=== PATIENT | male | born 1940 | race Caucasian/White ===

== ENCOUNTER → 2017-03-01 | Outpatient (CLI) | payer MEDICARE, OTHER ==
[~2017-03-01] MED LIST: ADULT LOW DOSE81 M1 PO; ATORVASTATIN CA40 MG PO; CENTRUM SILVER1 EAC3 PO; COZAAR100 MG PO; JANUMET 50/11 TABLET PO; KRILL OIL 3001 EACH PO; LIPITOR40 MG PO; LOPRESSOR50 MG PO; LOSARTAN POTAS100 MG PO; METOPROLOL SUCC50 MG PO; PANTOPRAZOLE SO40 MG PO; STOOL SOFTENER100 M1 PO; TRAMADOL HCL50 MG PO; VITAMIN D31000 UNIT PO; VITAMIN E400 UNIT PO
== END | disposition home or self-care (01) ==
LOC: CDC 13:59
DX: N39.3 Stress incontinence (female) (male) (principal)
CPT/HCPCS: 93000

== ENCOUNTER 2017-03-07 05:29 | Day surgery (SDC) | payer OTHER ==
[~2017-03-07] VITALS: Ht 165.1 cm; Wt 78.5 kg
[2017-03-07 06:11] VITALS: BP 130/75
[2017-03-07 06:12] LABS: POINT-OF-CARE METER ID UU13113694
[2017-03-07 10:54] LABS: POINT-OF-CARE METER ID UU13113675
[2017-03-07 13:00] VITALS: BP 120/56
[2017-03-07 16:00] VITALS: BP 98/55
[2017-03-07 19:43] VITALS: BP 108/54
[2017-03-07 23:43] VITALS: BP 117/57
[2017-03-08 03:59] VITALS: BP 120/58
[2017-03-08 06:44] VITALS: BP 132/61
== END 2017-03-08 10:47 | disposition home or self-care (01) ==
LOC: SDC 05:29 → 2SOUTH 10:37 → 2EASTP 10:37 → 2SOUTH 10:37 → SDC 11:10 → 2EASTP 12:51
PROVIDERS: Urology
PROC: 0TR Urinary System, Replacement (ICD-10-PCS; principal; 2017-03-07)
DX: N39.3 Stress incontinence (female) (male) (principal); E11.9 Type 2 diabetes mellitus without complications; I10 Essential (primary) hypertension; G47.30 Sleep apnea, unspecified; K21.9 Gastro-esophageal reflux disease without esophagitis; I71.4 Abdominal aortic aneurysm, without rupture; Z85.46 Personal history of malignant neoplasm of prostate; Z87.891 Personal history of nicotine dependence; Z83.3 Family history of diabetes mellitus; Z82.61 Family history of arthritis; Z79.82 Long term (current) use of aspirin
CPT/HCPCS: 82948; C1815; G0378; J0690; J1170; J1580; J2310; J3010; J7120

== ENCOUNTER → 2017-06-24 | Outpatient (CLI) | payer OTHER | END | disposition home or self-care (01) | LOC: RAD 15:03 | DX: K57.30 Diverticulosis of large intestine without perforation or abscess without bleeding (principal); I71.4 Abdominal aortic aneurysm, without rupture; R93.5 Abnormal findings on diagnostic imaging of other abdominal regions, including retroperitoneum | CPT/HCPCS: 74160 ==